=== PATIENT | male | born 1960 | race Caucasian/White ===

== ENCOUNTER 2023-10-21 16:36 | Day surgery (SDC) | payer BC, OTHER ==
[2023-10-21 16:42] VITALS: BMI 24.3
[2023-10-21] MEDS ORDERED: ONDANSETRON 4 MG/2 ML VIAL ONE (18:17)
[2023-10-21] MEDS ORDERED: ACETAMINOPHEN 500 MG TABLET (FP) ONE (18:17)
[2023-10-21] MEDS: ACETAMINOPHEN 500 MG TABLET (FP) PO ONE (18:33)
[2023-10-21] MEDS: SODIUM CHLORIDE 0.9% 500 ML INFUS.BAG IV ONE (18:33)
[2023-10-21] MEDS: ONDANSETRON 4 MG/2 ML VIAL IVPUSH ONE (18:34)
[2023-10-21 18:51] LABS: BASO % 0.2 % (0-2.0); EOS % 0.2 % (0-4.5); EPI CELLS 3 /uL (0-25.1); HEMATOCRIT 43.1 % (35.4-49); HYALINE CASTS 5 /uL (0-3.1); LYMPH % 15.5 % (8-40); MCH 28.6 pg (25.7-33.7); MCHC 32.6 g/dl (32.0-35.9); MEAN CELL VOLUME 87.7 fl (80-96); MEAN PLT VOLUME 6.9 fl (7.5-11.1); MONO % 5.6 % (3.8-10.2); NEUT % 78.5 % (42.8-82.8); PLATELET COUNT 268 10^3/uL (134-434); RBC 4.92 M/mm3 (4.00-5.60); RDW 13.4 % (11.9-15.9); URINE APPEARANCE TURBID; URINE BACTERIA 2647 /uL (0-1359); URINE BILIRUBIN NEGATIVE (NEGATIVE); URINE COLOR YELLOW; URINE GLUCOSE (UA) NEGATIVE (NEGATIVE); URINE KETONE NEGATIVE (NEGATIVE); URINE LEUK ESTERASE 2+ (NEGATIVE); URINE NITRITE NEGATIVE (NEGATIVE); URINE PROTEIN 2+ (NEGATIVE); URINE RBC 3242 /uL (0-23.9); URINE UROBILINOGEN 0.2 mg/dL (0.2-1.0); URINE WBC 1242 /uL (0-25.8); WHITE BLOOD COUNT 11.4 K/mm3 (4.0-10.0)
[2023-10-21 19:10] LABS: POTASSIUM 4.3 mmol/L (3.5-5.1)
[2023-10-21 19:12] LABS: CALCIUM 9.1 mg/dL (8.5-10.1)
[2023-10-21 19:13] LABS: ALBUMIN 3.8 g/dl (3.4-5.0); BLOOD UREA NITROGEN 20.4 mg/dL (7-18)
[2023-10-21 19:16] LABS: CREATININE 1.3 mg/dL (0.55-1.3)
[2023-10-21 19:17] LABS: BILIRUBIN,TOTAL 0.4 mg/dL (0.2-1)
[2023-10-21] MEDS ORDERED: CEFTRIAXONE 1 GM/50 ML BAG ONE (20:37)
[2023-10-21] MEDS: CEFTRIAXONE 1,000 MG in DEXTROSE 5%-WATER - 50 ML IVPB ONE (20:47)
[2023-10-21] MEDS ORDERED: KETOROLAC TROMETHAMINE 15 MG/ML VIAL ONE (21:13)
[2023-10-21] MEDS: KETOROLAC TROMETHAMINE 15 MG/ML VIAL IVPUSH ONE (21:25)
[2023-10-21] MEDS ORDERED: DOCUSATE SODIUM 100 MG CAPSULE (FP) PO PRN (22:41)
[2023-10-21] MEDS: morphine CARPU-JECT 2 MG/1 ML DISP.SYRIN IVPUSH ONE (22:42)
[2023-10-21] MEDS ORDERED: TAMSULOSIN HCL 0.4 MG CAP ONE (23:06)
[2023-10-21] MEDS: TAMSULOSIN HCL 0.4 MG CAP PO ONE (23:26)
[2023-10-21] MEDS: DEXTROSE 5%-0.45% SALINE 1,000 ML IV SCH (23:26)
[2023-10-21] MEDS ORDERED: ONDANSETRON 4 MG/2 ML VIAL IVPUSH PRN (23:36)
[2023-10-22] MEDS: VERAPAMIL HCL 180 MG E.R. TABLET PO SCH ×2 (01:28→17:10)
[2023-10-22] MEDS ORDERED: ACETAMINOPHEN 1000 MG/100 ML BAG IVPB PRN (01:30)
[2023-10-22] MEDS ORDERED: KETOROLAC TROMETHAMINE 15 MG/ML VIAL IVPUSH PRN (03:30)
[2023-10-22 08:34] LABS: BASO % 0.2 % (0-2.0); EOS % 0.2 % (0-4.5); HEMATOCRIT 40.8 % (35.4-49); HEMOGLOBIN 14.3 GM/dL (11.7-16.9); MCH 30.5 pg (25.7-33.7); MEAN PLT VOLUME 6.8 fl (7.5-11.1); MONO % 10.2 % (3.8-10.2); NEUT % 68.4 % (42.8-82.8); PLATELET COUNT 254 10^3/uL (134-434); RBC 4.69 M/mm3 (4.00-5.60); RDW 13.5 % (11.9-15.9); WHITE BLOOD COUNT 9.2 K/mm3 (4.0-10.0)
[2023-10-22 08:40] LABS: POTASSIUM 4.5 mmol/L (3.5-5.1)
[2023-10-22 08:44] LABS: INR 1.35 (0.83-1.09); PROTHROMBIN TIME (PATIENT) 15.6 SEC (9.7-13.0)
[2023-10-22 08:47] LABS: ACTIVATED PTT 32.1 SECONDS (25.2-36.5)
[2023-10-22 08:48] LABS: CALCIUM 8.6 mg/dL (8.5-10.1)
[2023-10-22 08:49] LABS: BLOOD UREA NITROGEN 13.3 mg/dL (7-18)
[2023-10-22 08:52] LABS: CREATININE 1.2 mg/dL (0.55-1.3); PHOSPHOROUS 2.4 mg/dL (2.5-4.9)
[2023-10-22] MEDS: CEFTRIAXONE 1 GM in DEXTROSE 5%-WATER - 50 ML IVPB SCH (10:18)
[2023-10-22] MEDS ORDERED: POTASSIUM PHOSPHATE 15 MM in SODIUM CHLORIDE 250 ML IVPB ONE (11:00)
[2023-10-22] MEDS ORDERED: ONDANSETRON 4 MG/2 ML VIAL IVPUSH PRN ×3 (11:10→14:06)
[2023-10-22] MEDS ORDERED: LACTATED RINGERS SOLUTION 1,000 ML IV SCH (11:15)
[2023-10-22] MEDS ORDERED: MIDAZOLAM HCL 2 MG/2 ML SINGLE DOSE VIAL ONE (11:17)
[2023-10-22] MEDS ORDERED: LIDOCAINE HCL/PF 2% SDV 5ML VIAL ONE (11:18)
[2023-10-22] MEDS ORDERED: PROPOFOL 40 ML ONE (11:18)
[2023-10-22] MEDS: cefTRIAXone SODIUM 1 GM VIAL IVPB ONE (11:37)
[2023-10-22] MEDS ORDERED: ONDANSETRON 4 MG/2 ML VIAL ONE (11:43)
[2023-10-22] MEDS ORDERED: DEXAMETHASONE SOD PHOSPHATE 4 MG/1 ML VIAL ONE (11:43)
[2023-10-22] MEDS ORDERED: MEPERIDINE HCL 25 MG/ML VIAL ONE (12:54)
[2023-10-22] MEDS ORDERED: MEPERIDINE HCL 25 MG/ML VIAL IVPUSH ONE (12:58)
[2023-10-22] MEDS: MEPERIDINE HCL 25 MG/ML VIAL IVPUSH ONE (13:00)
[2023-10-22] MEDS ORDERED: DOCUSATE SODIUM 100 MG CAPSULE (FP) PO PRN (14:06)
[2023-10-22] MEDS: ACETAMINOPHEN 1000 MG/100 ML BAG IVPB PRN (14:20)
[2023-10-22] MEDS: DEXTROSE 5%-0.45% SALINE 1,000 ML IV SCH (14:45)
[2023-10-22] MEDS: POTASSIUM PHOSPHATE 15 MM in SODIUM CHLORIDE 250 ML IVPB ONE (14:45)
[2023-10-22] MEDS: SOLIFENACIN SUCCINATE 5 MG TAB PO SCH (17:10)
[2023-10-22] MEDS: TAMSULOSIN HCL 0.4 MG CAP PO ONE (17:10)
[2023-10-23] MEDS: KETOROLAC TROMETHAMINE 15 MG/ML VIAL IVPUSH PRN (05:02)
[2023-10-23 05:34] VITALS: BP 128/70; PULSE 80; RESP 18; TEMP 98.7
[2023-10-23 08:35] LABS: BASO % 0.2 % (0-2.0); HEMATOCRIT 37.1 % (35.4-49); HEMOGLOBIN 12.3 GM/dL (11.7-16.9); LYMPH % 9.2 % (8-40); MCH 29.2 pg (25.7-33.7); MCHC 33.2 g/dl (32.0-35.9); MEAN CELL VOLUME 87.8 fl (80-96); MEAN PLT VOLUME 6.9 fl (7.5-11.1); MONO % 5.1 % (3.8-10.2); NEUT % 85.5 % (42.8-82.8); PLATELET COUNT 202 10^3/uL (134-434); RBC 4.23 M/mm3 (4.00-5.60); RDW 13.5 % (11.9-15.9); WHITE BLOOD COUNT 16.4 K/mm3 (4.0-10.0)
[2023-10-23 08:56] LABS: POTASSIUM 3.9 mmol/L (3.5-5.1)
[2023-10-23 09:07] LABS: CALCIUM 7.8 mg/dL (8.5-10.1)
[2023-10-23 09:08] LABS: BLOOD UREA NITROGEN 13.3 mg/dL (7-18)
[2023-10-23 09:11] LABS: CREATININE 1.3 mg/dL (0.55-1.3)
[2023-10-23 09:12] LABS: TOT PROT 5.7 g/dl (6.4-8.2)
[2023-10-23 09:13] LABS: BILIRUBIN,TOTAL 0.6 mg/dL (0.2-1)
[2023-10-23 09:15] LABS: ALBUMIN 2.8 g/dl (3.4-5.0)
[2023-10-24 14:18] LABS: HIV INTERPRETATION NEGATIVE (NEGATIVE)
[2023-10-30 22:06] LABS: CA OXALATE MONOHYDR. 30 % (.); SIZE 6x6 mm (.); WEIGHT 298 mg (.)
== END 2023-10-23 08:54 | disposition home or self-care (01) ==
LOC: JER 16:36 → JERBED 21:02 → UNDOADMIN 21:02 → JERBED 10-22 00:27 → J6S 10-22 00:27 → JASUSAT 10-22 10:19 → J6S 10-22 10:33 → JASUSAT 10-23 08:54
PROVIDERS: ATTEND Family Medicine
PROC: 0TC68ZZ Extirpation of Matter from Right Ureter, Via Natural or Artificial Opening Endoscopic (ICD-10-PCS; principal; 2023-10-22 12:00)
PROC: 0T768DZ Dilation of Right Ureter with Intraluminal Device, Via Natural or Artificial Opening Endoscopic (ICD-10-PCS; 2023-10-22 12:00)
PROC: 0T778DZ Dilation of Left Ureter with Intraluminal Device, Via Natural or Artificial Opening Endoscopic (ICD-10-PCS; 2023-10-22 12:00)
PROC: BT14YZZ Fluoroscopy of Kidneys, Ureters and Bladder using Other Contrast (ICD-10-PCS; 2023-10-22 12:00)
DX: N13.2 Hydronephrosis with renal and ureteral calculous obstruction (principal)
CPT/HCPCS: 36415; 74176-TC; 76000-TC-FY; 80048; 80053; 81003; 82360; 83735; 84100; 84460; 85025; 85610; 85730; 86803; 87086; 87340; 87389; 88300-TC; 93005; 93010; 94760; 99285-25; C1758; C2617; J0131

== ENCOUNTER 2023-11-19 04:03 | Day surgery (SDC) | payer BC, OTHER ==
[2023-11-14 12:44] VITALS: BMI 24.3
[2023-11-19] MEDS ORDERED: FENTANYL CITRATE/PF 50 MCG/ML VIAL ONE ×2 (10:42→10:46)
[2023-11-19] MEDS ORDERED: MIDAZOLAM HCL 2 MG/2 ML SINGLE DOSE VIAL ONE (10:43)
[2023-11-19 13:02] VITALS: BP 136/79; PULSE 72; RESP 19; TEMP 97.5
== END 2023-11-19 12:55 | disposition home or self-care (01) ==
LOC: JASU-SURG 04:03
PROVIDERS: ATTEND Urology
PROC: 0TF4XZZ Fragmentation in Left Kidney Pelvis, External Approach (ICD-10-PCS; principal; 2023-11-19 11:00)
DX: N20.0 Calculus of kidney (principal)

== ENCOUNTER → 2023-12-17 | Day surgery (SDC) | payer BC, OTHER ==
[2023-12-13 11:27] VITALS: BMI 24.3
[~2023-12-17] MED LIST: FENTANYL CITRATE/PF 50 MCG/ML VIAL ONE; MIDAZOLAM HCL 2 MG/2 ML SINGLE DOSE VIAL ONE; ONDANSETRON 4 MG/2 ML VIAL ONE; PROPOFOL 20 ML ONE
[2023-12-17 10:12] VITALS: BP 152/89; PULSE 74; RESP 18; TEMP 97.6
== END | disposition home or self-care (01) ==
LOC: JASU-SURG 03:57
PROVIDERS: ATTEND Urology
PROC: 0TF4XZZ Fragmentation in Left Kidney Pelvis, External Approach (ICD-10-PCS; principal; 2023-12-17 12:00)
DX: N20.0 Calculus of kidney (principal)